=== PATIENT | female | born 1960 | race Caucasian/White ===

== ENCOUNTER → 2022-03-05 | Outpatient (REF) | payer MEDICARE ==
[2022-03-05 17:14] LABS: BASO # 0.1 10^3/uL (0.0-0.2); BASO % 0.8 % (0.0-1.0); EOS # 0.2 10^3/uL (0.0-0.5); EOS % 2.8 % (0.0-3.0); HEMATOCRIT 33.1 % (36.0-47.0); HEMOGLOBIN 9.5 g/dl (12.0-15.5); LYMPH # 1.7 10^3/uL (1.5-5.0); MEAN CORPUSCULAR HEMOGLOBIN 24.1 pg (27.0-33.0); MEAN CORPUSCULAR HGB CONC 28.7 g/dl (32.0-36.5); MONO # 0.7 10^3/uL (0.0-0.8); MONO % 10.2 % (2.0-8.0); NEUTROPHILS # 4.4 10^3/uL (1.5-8.5); NEUTROPHILS % 61.9 % (36.0-66.0); PLATELET COUNT, AUTOMATED 423 10^3/uL (150-450); RED BLOOD COUNT 3.94 10^6/uL (4.00-5.40); WHITE BLOOD COUNT 7.2 10^3/uL (4.0-10.0)
[2022-03-05 17:25] LABS: ALBUMIN 3.6 GM/DL (3.2-5.2); ALT/SGPT 20 U/L (12-78); BILIRUBIN,TOTAL 0.2 MG/DL (0.2-1.0); BLOOD UREA NITROGEN 24 MG/DL (7-18); CALCIUM LEVEL 9.3 MG/DL (8.8-10.2); CARBON DIOXIDE LEVEL 26 MEQ/L (21-32); CHLORIDE LEVEL 107 MEQ/L (98-107); CHOLESTEROL LEVEL 144 MG/DL (<200); CHOLESTEROL RISK RATIO 2.938 (<5); CREATININE FOR GFR 0.63 MG/DL (0.55-1.30); FREE T4 0.98 NG/DL (0.76-1.46); GLOMERULAR FILTRATION RATE > 60.0 (>45); GLUCOSE, FASTING 104 MG/DL (70-100); HDL CHOLESTEROL 49 MG/DL (>40); LDL CHOLESTEROL 73 MG/DL (<100); NON-HDL-C 95 MG/DL; POTASSIUM SERUM 3.5 MEQ/L (3.5-5.1); SODIUM LEVEL 138 MEQ/L (136-145); TOTAL PROTEIN 7.4 GM/DL (6.4-8.2); TRIGLYCERIDES LEVEL 109 MG/DL (<150)
[2022-03-05 17:41] LABS: HEMOGLOBIN A1c 5.1 %
== END ==
LOC: M LAB REF 16:37
PROVIDERS: ATTEND Nurse Practitioner Family
DX: Z13.228 Encounter for screening for other metabolic disorders (principal)

== ENCOUNTER → 2022-11-12 | Outpatient (REF) | payer MEDICARE ==
[2022-11-12 12:46] LABS: BASO % 0.4 % (0.0-1.0); EOS # 0.3 10^3/uL (0.0-0.5); EOS % 3.6 % (0.0-3.0); HEMATOCRIT 38.4 % (36.0-47.0); HEMOGLOBIN 11.7 g/dl (12.0-15.5); LYMPH # 2.2 10^3/uL (1.5-5.0); LYMPH % 23.5 % (24.0-44.0); MEAN CORPUSCULAR HEMOGLOBIN 26.3 pg (27.0-33.0); MEAN CORPUSCULAR HGB CONC 30.5 g/dl (32.0-36.5); MEAN CORPUSCULAR VOLUME 86.3 fl (80.0-96.0); MONO # 0.8 10^3/uL (0.0-0.8); MONO % 8.5 % (2.0-8.0); NEUTROPHILS # 6.1 10^3/uL (1.5-8.5); NEUTROPHILS % 63.8 % (36.0-66.0); PLATELET COUNT, AUTOMATED 331 10^3/uL (150-450); RED BLOOD COUNT 4.45 10^6/uL (4.00-5.40); WHITE BLOOD COUNT 9.5 10^3/uL (4.0-10.0)
== END ==
LOC: M LAB REF 11:47
PROVIDERS: ATTEND Nurse Practitioner Family
DX: J02.9 Acute pharyngitis, unspecified (principal); D64.9 Anemia, unspecified

== ENCOUNTER 2022-12-12 21:43 | Emergency (ER) | payer MEDICARE ==
[~2022-12-12] VITALS: Ht 160 cm; Wt 73.7 kg
[2022-12-12 21:45] VITALS: BP 167/89; TEMP 97.2
[2022-12-13] MEDS ORDERED: PROPARACAINE 0.5% OPHTH SOL 15ML OS ONE (01:20)
[2022-12-13] MEDS ORDERED: FLUORESCEIN OPHTH 1MG STRIP OS ONE (01:20)
[2022-12-13] MEDS ORDERED: CIPROFLOXACIN 0.3% OPHTH SOLN 2.5ML OS ONE (01:50)
[2022-12-13] MEDS ORDERED: NORCO, ANEXSIA 5/325MG TABLET (HYDROcodone/ACETAMINOPHEN) PO ONE (01:50)
[2022-12-13 01:59] VITALS: O2SAT 97
== END 2022-12-13 02:34 | disposition home or self-care (01) ==
LOC: M ED 21:43
DX: S00.83XA Contusion of other part of head, initial encounter (principal); W19.XXXA Unspecified fall, initial encounter; H10.9 Unspecified conjunctivitis; I10 Essential (primary) hypertension; F17.200 Nicotine dependence, unspecified, uncomplicated

== ENCOUNTER → 2023-06-29 | Outpatient (REF) | payer MEDICARE ==
[2023-06-29 12:40] LABS: BASO # 0.1 10^3/uL (0.0-0.2); BASO % 0.8 % (0.0-1.0); EOS # 0.3 10^3/uL (0.0-0.5); EOS % 3.8 % (0.0-3.0); HEMATOCRIT 39.2 % (36.0-47.0); HEMOGLOBIN 12.1 g/dl (12.0-15.5); LYMPH # 1.8 10^3/uL (1.5-5.0); LYMPH % 22.5 % (24.0-44.0); MEAN CORPUSCULAR HEMOGLOBIN 26.7 pg (27.0-33.0); MEAN CORPUSCULAR HGB CONC 30.9 g/dl (32.0-36.5); MEAN CORPUSCULAR VOLUME 86.3 fl (80.0-96.0); MONO # 0.5 10^3/uL (0.0-0.8); MONO % 6.7 % (2.0-8.0); NEUTROPHILS # 5.3 10^3/uL (1.5-8.5); NEUTROPHILS % 66.1 % (36.0-66.0); PLATELET COUNT, AUTOMATED 409 10^3/uL (150-450); RED BLOOD COUNT 4.54 10^6/uL (4.00-5.40); WHITE BLOOD COUNT 7.9 10^3/uL (4.0-10.0)
[2023-06-29 13:04] LABS: BLOOD UREA NITROGEN 17 MG/DL (9-23); CALCIUM LEVEL 9.3 MG/DL (8.3-10.6); CARBON DIOXIDE LEVEL 27 MMOL/L (20-31); CHLORIDE LEVEL 107 MMOL/L (98-107); CREATININE FOR GFR 0.43 MG/DL (0.55-1.30); GLOMERULAR FILTRATION RATE > 60.0 (>45); GLUCOSE, FASTING 85 MG/DL (74-106); POTASSIUM SERUM 4.7 MMOL/L (3.5-5.1); SODIUM LEVEL 137 MMOL/L (136-145)
== END ==
LOC: M LAB REF 12:16
PROVIDERS: ATTEND Nurse Practitioner Family
DX: Z01.818 Encounter for other preprocedural examination (principal)

== ENCOUNTER → 2024-01-26 | Outpatient (REF) | payer MEDICARE ==
[2024-01-26 17:30] LABS: BASO # 0.1 10^3/uL (0.0-0.2); BASO % 0.6 % (0.0-1.0); EOS # 0.2 10^3/uL (0.0-0.5); EOS % 1.9 % (0.0-3.0); HEMATOCRIT 33.5 % (36.0-47.0); HEMOGLOBIN 9.8 g/dl (12.0-15.5); LYMPH # 2.3 10^3/uL (1.5-5.0); LYMPH % 24.6 % (24.0-44.0); MEAN CORPUSCULAR HGB CONC 29.3 g/dl (32.0-36.5); MEAN CORPUSCULAR VOLUME 78.6 fl (80.0-96.0); MONO # 0.7 10^3/uL (0.0-0.8); MONO % 6.9 % (2.0-8.0); NEUTROPHILS # 6.3 10^3/uL (1.5-8.5); NEUTROPHILS % 65.7 % (36.0-66.0); PLATELET COUNT, AUTOMATED 364 10^3/uL (150-450); RED BLOOD COUNT 4.26 10^6/uL (4.00-5.40); WHITE BLOOD COUNT 9.5 10^3/uL (4.0-10.0)
[2024-01-26 17:52] LABS: ALBUMIN 3.9 G/DL (3.2-5.2); ALKALINE PHOSPHATASE 126 U/L (46-116); ALT/SGPT 12 U/L (7.0-40); AST/SGOT 11 U/L (<34); BILIRUBIN,TOTAL 0.2 MG/DL (0.3-1.2); BLOOD UREA NITROGEN 15 MG/DL (9-23); CALCIUM LEVEL 9.5 MG/DL (8.3-10.6); CARBON DIOXIDE LEVEL 25 MMOL/L (20-31); CHLORIDE LEVEL 108 MMOL/L (98-107); CHOLESTEROL LEVEL 235 MG/DL (<200); GLOMERULAR FILTRATION RATE > 60.0 (>45); GLUCOSE, FASTING 85 MG/DL (74-106); HDL CHOLESTEROL 53.3 MG/DL (>40); LDL CHOLESTEROL 137.1 MG/DL (<100); MAGNESIUM LEVEL 2.2 MG/DL (1.8-2.4); NON-HDL-C 181.7 MG/DL; POTASSIUM SERUM 4.4 MMOL/L (3.5-5.1); SODIUM LEVEL 139 MMOL/L (136-145); TOTAL PROTEIN 7.4 G/DL (5.7-8.2); TRIGLYCERIDES LEVEL 223 MG/DL (<150)
[2024-01-26 17:55] LABS: TOTAL 25(OH) VITAMIN D 27.9 NG/ML (20.0-100.0)
[2024-01-26 17:56] LABS: THYROID STIMULATING HORMONE 1.058 uIU/ML (0.55-4.78)
[2024-01-26 18:04] LABS: HEMOGLOBIN A1c 5.1 % (4.0-6.0)
== END ==
LOC: M LAB REF 16:49
PROVIDERS: ATTEND Nurse Practitioner Family
DX: E66.3 Overweight (principal); E55.9 Vitamin D deficiency, unspecified; E07.9 Disorder of thyroid, unspecified

== ENCOUNTER 2024-05-11 22:07 | Inpatient (IN) | payer MEDICARE, OTHER ==
[~2024-05-11] VITALS: Ht 165.1 cm; Wt 89.9 kg
[2024-05-11 22:31] LABS: VENOUS BASE EXCESS -1.7 (-2.0-2.0); VENOUS HCO3 24.9 MMOL/L (23.0-27.0); VENOUS O2 SATURATION 76.9 % (60.0-80.0); VENOUS PARTIAL PRESSURE CO2 51.6 mmHg (38.0-50.0); VENOUS PARTIAL PRESSURE O2 45.4 mmHg (30.0-50.0); VENOUS PH 7.301 UNITS (7.330-7.430); VENOUS STANDARD HCO3 22.7 MMOL/L; VENOUS TOTAL CO2 26.5 MMOL/L (24.0-28.0)
[2024-05-11 22:36] LABS: BASO # 0.1 10^3/uL (0.0-0.2); BASO % 0.7 % (0.0-1.0); EOS # 0.1 10^3/uL (0.0-0.5); EOS % 1.4 % (0.0-3.0); HEMATOCRIT 27.1 % (36.0-47.0); HEMOGLOBIN 7.6 g/dl (12.0-15.5); LYMPH # 0.6 10^3/uL (1.5-5.0); LYMPH % 6.8 % (24.0-44.0); MEAN CORPUSCULAR HEMOGLOBIN 21.3 pg (27.0-33.0); MEAN CORPUSCULAR VOLUME 75.9 fl (80.0-96.0); MONO # 0.6 10^3/uL (0.0-0.8); MONO % 7.3 % (2.0-8.0); NEUTROPHILS # 7.4 10^3/uL (1.5-8.5); NEUTROPHILS % 83.5 % (36.0-66.0); PLATELET COUNT, AUTOMATED 314 10^3/uL (150-450); RED BLOOD COUNT 3.57 10^6/uL (4.00-5.40); WHITE BLOOD COUNT 8.8 10^3/uL (4.0-10.0)
[2024-05-11] MEDS: IPRATROPIUM 0.5MG/ALBUTEROL 2.5MG INH SOL UD 3ML (DUONEB) NEB ONE (22:49)
[2024-05-11 23:00] LABS: ALBUMIN 3.6 G/DL (3.2-5.2); ALKALINE PHOSPHATASE 140 U/L (35-104); ALT/SGPT 18 U/L (7.0-40); AST/SGOT 41 U/L (<34); BILIRUBIN,DIRECT < 0.1 MG/DL (<0.4); BILIRUBIN,TOTAL < 0.2 MG/DL (0.3-1.2); BLOOD UREA NITROGEN 13 MG/DL (9-23); CALCIUM LEVEL 8.7 MG/DL (8.3-10.6); CARBON DIOXIDE LEVEL 24 MMOL/L (20-31); CHLORIDE LEVEL 107 MMOL/L (98-107); CREATININE FOR GFR 0.67 MG/DL (0.55-1.30); GLOMERULAR FILTRATION RATE > 60.0 (>45); GLUCOSE, FASTING 109 MG/DL (74-106); POTASSIUM SERUM 4.3 MMOL/L (3.5-5.1); SODIUM LEVEL 139 MMOL/L (136-145)
[2024-05-11 23:02] LABS: THYROID STIMULATING HORMONE 2.918 uIU/ML (0.55-4.78); THYROXINE (T4) 7.1 UG/DL (4.5-10.9)
[2024-05-12] VITALS (7 sets, daily range): BP systolic 111–127; BP diastolic 59–84; TEMP 96.9–98.4; O2SAT 91–98
[2024-05-12 00:17] LABS: CK-MB VALUE MASS 1.9 NG/ML (<3.6)
[2024-05-12 00:19] LABS: MB/CK RELATIVE INDEX 1.21 (< OR =4)
[2024-05-12 00:34] LABS: BASO # 0.1 10^3/uL (0.0-0.2); BASO % 0.7 % (0.0-1.0); EOS # 0.1 10^3/uL (0.0-0.5); EOS % 1.1 % (0.0-3.0); HEMATOCRIT 25.8 % (36.0-47.0); HEMOGLOBIN 7.5 g/dl (12.0-15.5); LYMPH # 0.4 10^3/uL (1.5-5.0); LYMPH % 4.6 % (24.0-44.0); MEAN CORPUSCULAR HEMOGLOBIN 22.3 pg (27.0-33.0); MEAN CORPUSCULAR HGB CONC 29.1 g/dl (32.0-36.5); MEAN CORPUSCULAR VOLUME 76.6 fl (80.0-96.0); MONO # 0.5 10^3/uL (0.0-0.8); MONO % 5.1 % (2.0-8.0); NEUTROPHILS # 8.1 10^3/uL (1.5-8.5); NEUTROPHILS % 88.1 % (36.0-66.0); PLATELET COUNT, AUTOMATED 318 10^3/uL (150-450); RED BLOOD COUNT 3.37 10^6/uL (4.00-5.40); WHITE BLOOD COUNT 9.2 10^3/uL (4.0-10.0)
[2024-05-12 00:54] LABS: CK-MB VALUE MASS 1.5 NG/ML (<3.6)
[2024-05-12 01:03] LABS: CPK CREATINE PHOSPHOKINASE 172 U/L (34-145); MB/CK RELATIVE INDEX 0.87 (< OR =4)
[2024-05-12] MEDS: ACETAMINOPHEN *IV* 1,000 MG in IV 1 EA IV ONE (01:51)
[2024-05-12] MEDS ORDERED: MAALOX 30 ML SUSP *UDC PO PRN (02:40)
[2024-05-12] MEDS ORDERED: ALBUTEROL 90 MCG/ACT 8GM HFA INHALER INH PRN (02:40)
[2024-05-12] MEDS ORDERED: MOM 30ML SUSPENSION UDC PO PRN (02:40)
[2024-05-12] MEDS ORDERED: IBUP-1022 PO (03:12)
[2024-05-12] MEDS ORDERED: GABA-1172 PO (03:12)
[2024-05-12] MEDS ORDERED: ZOLO100T PO (03:12)
[2024-05-12] MEDS ORDERED: CLON1TAB8 PO (03:12)
[2024-05-12] MEDS ORDERED: LISI30TA4 PO (03:12)
[2024-05-12] MEDS ORDERED: TRAZ-252 PO (03:12)
[2024-05-12] MEDS ORDERED: ZIPR60CA21 PO (03:12)
[2024-05-12] MEDS ORDERED: HOME MED LIST COMPLETE! XX SCH (03:15)
[2024-05-12] MEDS: cefTRIAXone SOD 1 GM in DEXTROSE 5% (D5W) ADV/MINI-BAG 50 ML IV SCH (03:30)
[2024-05-12] MEDS: IPRATROPIUM 0.5MG/ALBUTEROL 2.5MG INH SOL UD 3ML (DUONEB) NEB SCH (03:30)
[2024-05-12] MEDS: KETOROLAC TROMETHAMINE 10 MG TAB PO ONE (03:31)
[2024-05-12] MEDS: AZITHROMYCIN INJ 500 MG, VIAL MATE ADAPTER 1 EACH in NS 250 ML IV SCH (04:05)
[2024-05-12] MEDS ORDERED: ACETAMINOPHEN 325 MG TAB PO PRN (06:00)
[2024-05-12] MEDS: IBUPROFEN 600MG TAB PO PRN (07:19)
[2024-05-12 07:23] LABS: HEMATOCRIT 23.7 % (36.0-47.0); MEAN CORPUSCULAR HGB CONC 27.8 g/dl (32.0-36.5); MEAN CORPUSCULAR VOLUME 75.5 fl (80.0-96.0); PLATELET COUNT, AUTOMATED 286 10^3/uL (150-450); RED BLOOD COUNT 3.14 10^6/uL (4.00-5.40); WHITE BLOOD COUNT 7.2 10^3/uL (4.0-10.0)
[2024-05-12 07:31] LABS: HEMOGLOBIN 6.6 g/dl (12.0-15.5)
[2024-05-12 07:51] LABS: ALBUMIN 3.2 G/DL (3.2-5.2); ALKALINE PHOSPHATASE 139 U/L (35-104); ALT/SGPT 15 U/L (7.0-40); AST/SGOT 14 U/L (<34); BILIRUBIN,TOTAL < 0.2 MG/DL (0.3-1.2); BLOOD UREA NITROGEN 14 MG/DL (9-23); CARBON DIOXIDE LEVEL 26 MMOL/L (20-31); CHLORIDE LEVEL 108 MMOL/L (98-107); CREATININE FOR GFR 0.57 MG/DL (0.55-1.30); GLOMERULAR FILTRATION RATE > 60.0 (>45); GLUCOSE, FASTING 164 MG/DL (74-106); MAGNESIUM LEVEL 2.1 MG/DL (1.8-2.4); POTASSIUM SERUM 3.8 MMOL/L (3.5-5.1); SODIUM LEVEL 143 MMOL/L (136-145); TOTAL PROTEIN 6.8 G/DL (5.7-8.2)
[2024-05-12 08:02] LABS: PROCALCITONIN 0.04 ng/ml
[2024-05-12 08:25] LABS: IRON (FE) 9 UG/DL (50-170); PERCENT SATURATION 2.4 % (13.2-45.0); TOTAL IRON BINDING CAPACITY 382 UG/DL (250-425)
[2024-05-12 08:27] LABS: FOLATE 8.85 NG/ML (>5.4)
[2024-05-12 08:28] LABS: VITAMIN B12 LEVEL 417 PG/ML (211-911)
[2024-05-12] MEDS: clonazePAM 1 MG TAB PO PRN (08:35)
[2024-05-12] MEDS: DOCUSATE SODIUM 100MG CAPSULE PO SCH (08:35)
[2024-05-12] MEDS: OSELTAMIVIR PHOSPHATE 75 MG CAP (TAMIFLU) PO SCH (08:36)
[2024-05-12] MEDS: GABAPENTIN 300 MG CAP PO SCH (08:37)
[2024-05-12] MEDS: SERTRALINE 100 MG TAB PO SCH (08:37)
[2024-05-12] MEDS: predniSONE 20 MG TAB PO SCH (08:38)
[2024-05-12] MEDS: NICOTINE 14 MG/24 HR TRANSDERMAL TD SCH (08:38)
[2024-05-12] MEDS: PANTOPRAZOLE 40MG VIAL IV SCH (08:38)
[2024-05-12] MEDS: ENOXAPARIN 40MG/0.4ML SYRINGE (J1650 PER 10MG) SC SCH (08:39)
[2024-05-12] MEDS ORDERED: ISOVUE-370 76% 100ML VIAL As Ordered ONE (11:00)
[2024-05-12] MEDS ORDERED: KETOROLAC 30 MG/ML 1ML VIAL IV PRN (11:05)
[2024-05-12 11:38] LABS: VENOUS BASE EXCESS -2.7 (-2.0-2.0); VENOUS HCO3 22.9 MMOL/L (23.0-27.0); VENOUS O2 SATURATION 81.5 % (60.0-80.0); VENOUS PARTIAL PRESSURE CO2 43.7 mmHg (38.0-50.0); VENOUS PARTIAL PRESSURE O2 46.6 mmHg (30.0-50.0); VENOUS PH 7.338 UNITS (7.330-7.430); VENOUS TOTAL CO2 24.3 MMOL/L (24.0-28.0)
[2024-05-12] MEDS: oxyCODONE 5MG TAB PO PRN (11:41)
[2024-05-12] MEDS: ACETAMINOPHEN 500 MG TAB PO SCH (12:32)
[2024-05-12] MEDS: KETOROLAC 30 MG/ML 1ML VIAL IV SCH (12:33)
[2024-05-12] MEDS: FERRIC CARBOXYMALTOSE INJ 750 MG, VIAL MATE ADAPTER 1 EACH in NS 100 ML IV ONE (12:35)
[2024-05-12 17:38] LABS: HEMATOCRIT 26.5 % (36.0-47.0); HEMOGLOBIN 7.7 g/dl (12.0-15.5); MEAN CORPUSCULAR HEMOGLOBIN 22.1 pg (27.0-33.0); MEAN CORPUSCULAR HGB CONC 29.1 g/dl (32.0-36.5); MEAN CORPUSCULAR VOLUME 76.1 fl (80.0-96.0); PLATELET COUNT, AUTOMATED 284 10^3/uL (150-450); RED BLOOD COUNT 3.48 10^6/uL (4.00-5.40); WHITE BLOOD COUNT 6.9 10^3/uL (4.0-10.0)
[2024-05-12] MEDS: ZIPRASIDONE 20MG CAPSULE (GEODON) PO SCH (20:50)
[2024-05-12] MEDS: traZODone 50 MG TAB PO SCH (20:51)
[2024-05-13 04:03] VITALS: BP 123/74; TEMP 97.7; O2SAT 95
[2024-05-13 07:08] LABS: VENOUS BASE EXCESS -3.6 (-2.0-2.0); VENOUS HCO3 22.7 MMOL/L (23.0-27.0); VENOUS O2 SATURATION 97.4 % (60.0-80.0); VENOUS PARTIAL PRESSURE CO2 46.8 mmHg (38.0-50.0); VENOUS PARTIAL PRESSURE O2 111.3 mmHg (30.0-50.0); VENOUS PH 7.304 UNITS (7.330-7.430); VENOUS STANDARD HCO3 21.5 MMOL/L; VENOUS TOTAL CO2 24.2 MMOL/L (24.0-28.0)
[2024-05-13 07:54] LABS: HEMATOCRIT 28.5 % (36.0-47.0); HEMOGLOBIN 8.1 g/dl (12.0-15.5); MEAN CORPUSCULAR HGB CONC 28.4 g/dl (32.0-36.5); MEAN CORPUSCULAR VOLUME 77.2 fl (80.0-96.0); PLATELET COUNT, AUTOMATED 317 10^3/uL (150-450); RED BLOOD COUNT 3.69 10^6/uL (4.00-5.40); WHITE BLOOD COUNT 7.5 10^3/uL (4.0-10.0)
[2024-05-13 08:20] LABS: BLOOD UREA NITROGEN 19 MG/DL (9-23); CALCIUM LEVEL 8.7 MG/DL (8.3-10.6); CARBON DIOXIDE LEVEL 27 MMOL/L (20-31); CHLORIDE LEVEL 107 MMOL/L (98-107); CREATININE FOR GFR 0.59 MG/DL (0.55-1.30); GLOMERULAR FILTRATION RATE > 60.0 (>45); GLUCOSE, FASTING 100 MG/DL (74-106); POTASSIUM SERUM 3.7 MMOL/L (3.5-5.1); SODIUM LEVEL 143 MMOL/L (136-145)
[2024-05-13 09:00] VITALS: BP 108/70
[2024-05-13] MEDS ORDERED: AZITHROMYCIN 250MG TABLET PO SCH (09:00)
[2024-05-13] MEDS ORDERED: OSEL75CA2 PO (10:17)
[2024-05-13] MEDS ORDERED: OXYC-517 PO (10:17)
[2024-05-13] MEDS ORDERED: ACET-683 PO (10:17)
[2024-05-13] MEDS ORDERED: FERR325T3 PO (10:19)
== END 2024-05-13 12:06 | disposition home or self-care (01) | DRG 193 ==
LOC: EDBD 22:07 → M ED 22:07 → M ED INP 05-12 02:38 → M MS5PR 05-12 15:26
PROVIDERS: ADMIT Student in an Organized Health Care Education/Training Program; ATTEND Student in an Organized Health Care Education/Training Program
PROC: 30233N1 Transfusion of Nonautologous Red Blood Cells into Peripheral Vein, Percutaneous Approach (ICD-10-PCS; principal; 2024-05-12)
DX: J10.00 Influenza due to other identified influenza virus with unspecified type of pneumonia (principal); J96.01 Acute respiratory failure with hypoxia; J96.02 Acute respiratory failure with hypercapnia; D50.0 Iron deficiency anemia secondary to blood loss (chronic); F43.10 Post-traumatic stress disorder, unspecified; F31.9 Bipolar disorder, unspecified; J44.9 Chronic obstructive pulmonary disease, unspecified; F32.A Depression, unspecified; I10 Essential (primary) hypertension; F41.9 Anxiety disorder, unspecified; F17.200 Nicotine dependence, unspecified, uncomplicated; G62.9 Polyneuropathy, unspecified; G47.00 Insomnia, unspecified; Z79.899 Other long term (current) drug therapy

== ENCOUNTER 2024-09-09 21:15 | Emergency (ER) | payer MEDICARE, OTHER ==
[~2024-09-09] VITALS: Ht 160 cm; Wt 90.9 kg
[~2024-09-09 21:15] MED LIST: ACET-683 PO; CLON1TAB8 PO; FERR325T3 PO; GABA-1172 PO; IBUP-1022 PO; LISI30TA4 PO; OSEL75CA2 PO; OXYC-517 PO; TRAZ-252 PO; ZIPR60CA21 PO; ZOLO100T PO
[2024-09-09 21:44] LABS: BASO % 0.4 % (0.0-1.0); EOS # 0.2 10^3/uL (0.0-0.5); EOS % 1.5 % (0.0-3.0); HEMATOCRIT 42.6 % (36.0-47.0); HEMOGLOBIN 14.1 g/dl (12.0-15.5); LYMPH # 3.5 10^3/uL (1.5-5.0); LYMPH % 31.6 % (24.0-44.0); MEAN CORPUSCULAR HEMOGLOBIN 31.3 pg (27.0-33.0); MEAN CORPUSCULAR HGB CONC 33.1 g/dl (32.0-36.5); MEAN CORPUSCULAR VOLUME 94.5 fl (80.0-96.0); MONO # 0.8 10^3/uL (0.0-0.8); MONO % 7.3 % (2.0-8.0); NEUTROPHILS # 6.6 10^3/uL (1.5-8.5); NEUTROPHILS % 58.9 % (36.0-66.0); PLATELET COUNT, AUTOMATED 290 10^3/uL (150-450); RED BLOOD COUNT 4.51 10^6/uL (4.00-5.40); WHITE BLOOD COUNT 11.2 10^3/uL (4.0-10.0)
[2024-09-09] MEDS: ONDANSETRON 4MG 2ML VIAL IV ONE (21:59)
[2024-09-09 22:06] LABS: CK-MB VALUE MASS 1.1 NG/ML (<3.6); LIPASE 31 U/L (12-53)
[2024-09-09 22:08] LABS: ALBUMIN 3.4 G/DL (3.2-5.2); ALKALINE PHOSPHATASE 140 U/L (35-104); ALT/SGPT 14 U/L (7.0-40); AST/SGOT 14 U/L (<34); BILIRUBIN,DIRECT 0.1 MG/DL (<0.4); BILIRUBIN,TOTAL 0.4 MG/DL (0.3-1.2); BLOOD UREA NITROGEN 25 MG/DL (9-23); CALCIUM LEVEL 8.9 MG/DL (8.3-10.6); CARBON DIOXIDE LEVEL 28 MMOL/L (20-31); CHLORIDE LEVEL 108 MMOL/L (98-107); CREATININE FOR GFR 0.54 MG/DL (0.55-1.30); GLOMERULAR FILTRATION RATE > 90.0 (>45); GLUCOSE, FASTING 101 MG/DL (74-106); SODIUM LEVEL 144 MMOL/L (136-145); TOTAL PROTEIN 6.6 G/DL (5.7-8.2)
[2024-09-09] MEDS ORDERED: ISOVUE-370 76% 100 ML VIAL As Ordered ONE (22:14)
[2024-09-09 22:16] LABS: CPK CREATINE PHOSPHOKINASE 87 U/L (34-145); MB/CK RELATIVE INDEX 1.26 (< OR =4)
[2024-09-09] MEDS: NS 500 ML IV ONE (22:33)
[2024-09-09] MEDS: KCL 10MEQ/100ML SWI (KRUN) 10 MEQ in IV 1 EA IV ONE (22:33)
[2024-09-09] MEDS: KETOROLAC 30 MG/ML 1 ML VIAL IV ONE (22:47)
[2024-09-09 23:15] VITALS: BP 182/93; TEMP 98.6; O2SAT 96
[2024-09-09] MEDS ORDERED: ONDA-282 PO (23:16)
[2024-09-09] MEDS ORDERED: KETO-204 PO (23:16)
[2024-09-09] MEDS ORDERED: NYST1POW3 TOP (23:16)
[2024-09-09] MEDS ORDERED: POTA10CA70 PO (23:16)
[2024-09-09] MEDS: POTASSIUM CHLORIDE 10MEQ SR TABLET PO ONE (23:19)
[2024-10-16] MEDS ORDERED: AMOX875T2 PO (15:56)
[2024-10-16] MEDS ORDERED: KETO-204 PO (15:56)
[2024-10-16] MEDS ORDERED: SUCR1TA PO (16:03)
[2024-10-16] MEDS ORDERED: OMEP40CA4 PO (16:03)
== END 2024-09-09 23:53 | disposition home or self-care (01) ==
LOC: M ED 21:15
DX: R10.9 Unspecified abdominal pain (principal); R11.2 Nausea with vomiting, unspecified; B37.2 Candidiasis of skin and nail; E87.6 Hypokalemia; J98.11 Atelectasis; K44.9 Diaphragmatic hernia without obstruction or gangrene; I10 Essential (primary) hypertension; F43.10 Post-traumatic stress disorder, unspecified; F32.9 Major depressive disorder, single episode, unspecified; F41.9 Anxiety disorder, unspecified; F17.200 Nicotine dependence, unspecified, uncomplicated; Z79.899 Other long term (current) drug therapy; Z79.83 Long term (current) use of bisphosphonates
CPT/HCPCS: 71045; 74177; 80048; 80076; 82550; 82553; 83690; 84484; 85025; 87486; 87581; 87633; 87798; 93005; 93041; 94760; 96365; 96375; 99285; J1885; J2405; Q9967

== ENCOUNTER → 2024-09-16 | Outpatient (REF) | payer MEDICARE ==
[~2024-09-16] MED LIST changes: +KETO-204 PO; +NYST1POW3 TOP; +ONDA-282 PO; +POTA10CA70 PO
[2024-09-16 18:37] LABS: ALBUMIN 3.9 G/DL (3.2-5.2); ALKALINE PHOSPHATASE 125 U/L (35-104); ALT/SGPT 17 U/L (7.0-40); AST/SGOT 14 U/L (<34); BILIRUBIN,TOTAL 0.3 MG/DL (0.3-1.2); BLOOD UREA NITROGEN 22 MG/DL (9-23); CALCIUM LEVEL 9.2 MG/DL (8.3-10.6); CARBON DIOXIDE LEVEL 27 MMOL/L (20-31); CHLORIDE LEVEL 107 MMOL/L (98-107); CREATININE FOR GFR 0.58 MG/DL (0.55-1.30); GLOMERULAR FILTRATION RATE > 90.0 (>45); GLUCOSE, FASTING 84 MG/DL (74-106); MAGNESIUM LEVEL 2.1 MG/DL (1.8-2.4); POTASSIUM SERUM 4.7 MMOL/L (3.5-5.1); SODIUM LEVEL 144 MMOL/L (136-145); TOTAL PROTEIN 7.2 G/DL (5.7-8.2)
== END ==
LOC: M LAB REF 17:30
PROVIDERS: ATTEND Nurse Practitioner Family
DX: E87.6 Hypokalemia (principal)

== ENCOUNTER 2024-11-05 08:37 | Inpatient (IN) | payer MEDICARE ==
[~2024-11-05] VITALS: Ht 160 cm; Wt 104.5 kg
[~2024-11-05 08:37] MED LIST changes: +AMOX875T2 PO; +OMEP40CA4 PO; +SUCR1TA PO
[2024-11-05 09:12] LABS: BASO # 0.1 10^3/uL (0.0-0.2); BASO % 0.4 % (0.0-1.0); EOS # 0.1 10^3/uL (0.0-0.5); EOS % 0.4 % (0.0-3.0); LYMPH # 1.5 10^3/uL (1.5-5.0); LYMPH % 10.5 % (24.0-44.0); MONO # 0.7 10^3/uL (0.0-0.8); MONO % 5.3 % (2.0-8.0); NEUTROPHILS # 11.5 10^3/uL (1.5-8.5); NEUTROPHILS % 83.1 % (36.0-66.0); PLATELET COUNT, AUTOMATED 282 10^3/uL (150-450)
[2024-11-05] MEDS: MORPHINE 4 MG/ML 1 ML VIAL IV PRN (09:35)
[2024-11-05 09:42] LABS: CK-MB VALUE MASS 3.0 NG/ML (<3.6)
[2024-11-05 09:45] LABS: ALT/SGPT 15 U/L (7.0-40); AST/SGOT 19 U/L (<34); CALCIUM LEVEL 9.5 MG/DL (8.3-10.6); CARBON DIOXIDE LEVEL 29 MMOL/L (20-31); CHLORIDE LEVEL 105 MMOL/L (98-107); CREATININE FOR GFR 0.47 MG/DL (0.55-1.30); GLOMERULAR FILTRATION RATE > 90.0 (>45); POTASSIUM SERUM 3.4 MMOL/L (3.5-5.1); SODIUM LEVEL 148 MMOL/L (136-145)
[2024-11-05 09:52] LABS: CPK CREATINE PHOSPHOKINASE 80 U/L (34-145); MB/CK RELATIVE INDEX 3.75 (< OR =4)
[2024-11-05 10:38] LABS: AMPHETAMINES LEVEL URINE NEGATIVE (NEGATIVE); BARBITURATES URINE NEGATIVE (NEGATIVE); CANNABINOIDS URINE NEGATIVE (NEGATIVE); METHADONE URINE NEGATIVE (NEGATIVE); PHENCYCLIDINE URINE NEGATIVE (NEGATIVE)
[2024-11-05] MEDS: METOPROLOL 5 MG/5 ML VIAL IV SCH (10:39)
[2024-11-05] MEDS: METOPROLOL TART 25 MG TABLET PO ONE (10:40)
[2024-11-05 10:43] LABS: BENZODIAZEPINES URINE POSITIVE (NEGATIVE); COCAINE METABOLITE URINE POSITIVE (NEGATIVE); OPIATES URINE POSITIVE (NEGATIVE)
[2024-11-05 10:53] LABS: CK-MB VALUE MASS 3.4 NG/ML (<3.6)
[2024-11-05 10:55] VITALS: BP 176/100
[2024-11-05 11:04] LABS: CPK CREATINE PHOSPHOKINASE 84.0 U/L (34-145); MB/CK RELATIVE INDEX 4.04 (< OR =4)
[2024-11-05] MEDS ORDERED: ISOVUE-370 76% 100 ML VIAL As Ordered ONE (11:45)
[2024-11-05] MEDS: PANTOPRAZOLE 40MG VIAL IV ONE (11:47)
[2024-11-05] MEDS: SUCRALFATE SUSP 1GM/10ML UD PO ONE (11:47)
[2024-11-05] MEDS ORDERED: FAMO1TAB11 PO (14:02)
[2024-11-05] MEDS ORDERED: KETO-204 PO (14:02)
[2024-11-05] MEDS ORDERED: ACET-897 PO (14:02)
[2024-11-05] MEDS ORDERED: PREG100C2 PO (14:02)
[2024-11-05] MEDS ORDERED: LORA-930 PO (14:02)
[2024-11-05] MEDS ORDERED: ONDA-83 PO (14:02)
[2024-11-05] MEDS ORDERED: FERR1TAB8 PO (14:02)
[2024-11-05] MEDS ORDERED: OMEP40CA5 PO (14:02)
[2024-11-05] MEDS ORDERED: HOME MED LIST COMPLETE! XX SCH (14:05)
[2024-11-05 15:17] LABS: MAGNESIUM LEVEL 2.0 MG/DL (1.8-2.4)
[2024-11-05 18:00] VITALS: BP 115/65; TEMP 98.1; O2SAT 91
[2024-11-05] MEDS: MORPHINE 2 MG/ML 1 ML VIAL IV PRN (18:37)
[2024-11-05 19:05] LABS: ESTIMATED AVERAGE GLUCOSE 91.0 MG/DL (60-110)
[2024-11-05 19:07] LABS: CHOLESTEROL LEVEL 146.0 MG/DL (<200); CHOLESTEROL RISK RATIO 3.26 (<5); LDL CHOLESTEROL 82.9 MG/DL (<100); NON-HDL-C 101.3 MG/DL; TRIGLYCERIDES LEVEL 92.0 MG/DL (<150)
[2024-11-05 20:00] VITALS: BP 129/88; TEMP 97.7; O2SAT 89
[2024-11-06] MEDS ORDERED: LACTATED RINGER'S 1000 ML As Ordered ONE (00:57)
[2024-11-06] MEDS: PANTOPRAZOLE 40MG VIAL IV SCH (01:03)
[2024-11-06] MEDS: POTASSIUM CHLORIDE INJ 20 MEQ in LR 1,000 ML IV SCH (01:04)
[2024-11-06 04:00] VITALS: BP 129/88; TEMP 97.7; O2SAT 89
[2024-11-06 05:47] LABS: PLATELET COUNT, AUTOMATED 247 10^3/uL (150-450)
[2024-11-06 06:16] LABS: ALT/SGPT 71 U/L (7.0-40); AST/SGOT 72 U/L (<34); CALCIUM LEVEL 9.2 MG/DL (8.3-10.6); CARBON DIOXIDE LEVEL 30 MMOL/L (20-31); CHLORIDE LEVEL 105 MMOL/L (98-107); CREATININE FOR GFR 0.53 MG/DL (0.55-1.30); GLOMERULAR FILTRATION RATE > 90.0 (>45); POTASSIUM SERUM 3.4 MMOL/L (3.5-5.1); SODIUM LEVEL 147 MMOL/L (136-145)
[2024-11-06] MEDS: ONDANSETRON 4MG 2ML VIAL IV PRN (06:28)
[2024-11-06] MEDS: NYSTATIN 100,000 UNITS/GM TOPICAL PWD 15 GM TOP SCH (08:21)
[2024-11-06 08:56] VITALS: BP 141/87; TEMP 97.9; O2SAT 93
[2024-11-06] MEDS: POTASSIUM CHLORIDE INJ 20 MEQ in D5W/LR 1,000 ML IV SCH (11:21)
[2024-11-06 12:29] VITALS: BP 138/83; TEMP 98.6; O2SAT 93
[2024-11-06] MEDS: HEPARIN SOD 5000 UNITS/ML 1 ML VIAL/SYRINGE SQ SCH (14:35)
[2024-11-06 19:19] LABS: CALCIUM LEVEL 8.7 MG/DL (8.3-10.6); CARBON DIOXIDE LEVEL 32 MMOL/L (20-31); CHLORIDE LEVEL 105 MMOL/L (98-107); CREATININE FOR GFR 0.50 MG/DL (0.55-1.30); GLOMERULAR FILTRATION RATE > 90.0 (>45); POTASSIUM SERUM 3.6 MMOL/L (3.5-5.1); SODIUM LEVEL 146 MMOL/L (136-145)
[2024-11-06 20:00] VITALS: BP 141/89; TEMP 98.1; O2SAT 93
[2024-11-06 21:00] VITALS: BP 141/89; TEMP 98.1; O2SAT 93
[2024-11-07 04:00] VITALS: BP 141/89; TEMP 98.1; O2SAT 93
[2024-11-07 06:33] LABS: BASO # 0.0 10^3/uL (0.0-0.2); BASO % 0.4 % (0.0-1.0); EOS # 0.1 10^3/uL (0.0-0.5); EOS % 1.5 % (0.0-3.0); LYMPH # 2.0 10^3/uL (1.5-5.0); LYMPH % 22.1 % (24.0-44.0); MONO # 0.9 10^3/uL (0.0-0.8); MONO % 9.5 % (2.0-8.0); NEUTROPHILS # 6.0 10^3/uL (1.5-8.5); NEUTROPHILS % 66.2 % (36.0-66.0); PLATELET COUNT, AUTOMATED 215 10^3/uL (150-450)
[2024-11-07 07:02] LABS: CALCIUM LEVEL 8.9 MG/DL (8.3-10.6); CARBON DIOXIDE LEVEL 30 MMOL/L (20-31); CHLORIDE LEVEL 104 MMOL/L (98-107); CREATININE FOR GFR 0.51 MG/DL (0.55-1.30); GLOMERULAR FILTRATION RATE > 90.0 (>45); POTASSIUM SERUM 3.8 MMOL/L (3.5-5.1); SODIUM LEVEL 146 MMOL/L (136-145)
[2024-11-07] MEDS: MORPHINE 2 MG/ML 1 ML VIAL IV PRN (08:28)
[2024-11-07] MEDS: HYDROMORPHONE HCL 0.5 MG/0.5 ML SYRINGE IV PRN ×2 (12:15→19:55)
[2024-11-07 12:20] VITALS: BP 156/90; TEMP 97.7; O2SAT 93
[2024-11-07] MEDS: POTASSIUM CHLORIDE INJ 20 MEQ in D5W/LR 1,000 ML IV SCH (14:14)
[2024-11-07 20:04] VITALS: BP 180/109; TEMP 97.9; O2SAT 95
[2024-11-07 20:10] VITALS: BP 176/104
[2024-11-07 23:19] VITALS: BP 175/102
[2024-11-08] VITALS (8 sets, daily range): BP systolic 132–173; BP diastolic 92–122; TEMP 97.5–98.1; O2SAT 90–95
[2024-11-08 06:09] LABS: BASO # 0.0 10^3/uL (0.0-0.2); BASO % 0.4 % (0.0-1.0); EOS # 0.2 10^3/uL (0.0-0.5); EOS % 2.1 % (0.0-3.0); LYMPH # 2.0 10^3/uL (1.5-5.0); LYMPH % 19.8 % (24.0-44.0); MONO # 0.9 10^3/uL (0.0-0.8); MONO % 8.9 % (2.0-8.0); NEUTROPHILS # 6.8 10^3/uL (1.5-8.5); NEUTROPHILS % 68.6 % (36.0-66.0); PLATELET COUNT, AUTOMATED 220 10^3/uL (150-450)
[2024-11-08 06:35] LABS: CALCIUM LEVEL 9.2 MG/DL (8.3-10.6); CARBON DIOXIDE LEVEL 29 MMOL/L (20-31); CHLORIDE LEVEL 102 MMOL/L (98-107); CREATININE FOR GFR 0.43 MG/DL (0.55-1.30); GLOMERULAR FILTRATION RATE > 90.0 (>45); POTASSIUM SERUM 3.7 MMOL/L (3.5-5.1); SODIUM LEVEL 143 MMOL/L (136-145)
[2024-11-08] MEDS ORDERED: E-Z-PAQUE 96% w/w SUSP 176 GM BTL As Ordered ONE (07:51)
[2024-11-08] MEDS ORDERED: hydrALAZINE 20 MG/ML 1 ML VIAL IV PRN (10:55)
[2024-11-08] MEDS ORDERED: HYDROMORPHONE HCL 0.5 MG/0.5 ML SYRINGE IV PRN (16:20)
[2024-11-08] MEDS: HYDROMORPHONE HCL 0.5 MG/0.5 ML SYRINGE IV PRN (17:28)
[2024-11-08] MEDS: **hydrALAZINE HCL** 25 MG TAB PO SCH (22:13)
== END 2024-11-09 08:05 | disposition left against medical advice (07) | DRG 391 ==
LOC: M ED 08:37 → EDBD 08:37 → M ED INP 15:22 → M MSPAV 16:58
PROVIDERS: ADMIT Internal Medicine; ATTEND Student in an Organized Health Care Education/Training Program
DX: K44.0 Diaphragmatic hernia with obstruction, without gangrene (principal); K56.2 Volvulus; I10 Essential (primary) hypertension; I16.0 Hypertensive urgency; J44.9 Chronic obstructive pulmonary disease, unspecified; F31.9 Bipolar disorder, unspecified; F43.10 Post-traumatic stress disorder, unspecified; F41.0 Panic disorder [episodic paroxysmal anxiety]; K21.9 Gastro-esophageal reflux disease without esophagitis; I48.0 Paroxysmal atrial fibrillation; F17.200 Nicotine dependence, unspecified, uncomplicated; F14.90 Cocaine use, unspecified, uncomplicated; Z79.899 Other long term (current) drug therapy; G89.29 Other chronic pain; Z91.199 Patient's noncompliance with other medical treatment and regimen due to unspecified reason

== ENCOUNTER 2024-11-24 11:08 | Emergency (ER) | payer MEDICARE ==
[~2024-11-24] VITALS: Ht 160 cm; Wt 86.1 kg
[~2024-11-24 11:08] MED LIST changes: +ACET-897 PO; +FAMO1TAB11 PO; +FERR1TAB8 PO; +LORA-930 PO; +OMEP40CA5 PO; +ONDA-83 PO; +PREG100C2 PO
[2024-11-24 12:10] LABS: BASO # 0.0 10^3/uL (0.0-0.2); BASO % 0.3 % (0.0-1.0); EOS # 0.1 10^3/uL (0.0-0.5); EOS % 0.9 % (0.0-3.0); LYMPH # 1.4 10^3/uL (1.5-5.0); LYMPH % 10.4 % (24.0-44.0); MONO # 0.7 10^3/uL (0.0-0.8); MONO % 5.2 % (2.0-8.0); NEUTROPHILS # 11.3 10^3/uL (1.5-8.5); NEUTROPHILS % 82.8 % (36.0-66.0); PLATELET COUNT, AUTOMATED 386 10^3/uL (150-450)
[2024-11-24 12:15] LABS: ALT/SGPT 14 U/L (7.0-40); AST/SGOT 20 U/L (<34); CALCIUM LEVEL 8.7 MG/DL (8.3-10.6); CARBON DIOXIDE LEVEL 28 MMOL/L (20-31); CHLORIDE LEVEL 102 MMOL/L (98-107); CREATININE FOR GFR 0.55 MG/DL (0.55-1.30); GLOMERULAR FILTRATION RATE > 90.0 (>45); POTASSIUM SERUM 3.5 MMOL/L (3.5-5.1); SODIUM LEVEL 144 MMOL/L (136-145)
[2024-11-24] MEDS ORDERED: ISOVUE-370 76% 100 ML VIAL As Ordered ONE (14:19)
[2024-11-24] MEDS: PANTOPRAZOLE 40MG VIAL IV ONE (14:23)
[2024-11-24] MEDS: HYDROMORPHONE HCL 0.5 MG/0.5 ML SYRINGE IV ONE (14:23)
[2024-11-24] MEDS: HYDROMORPHONE HCL 0.5 MG/0.5 ML SYRINGE IV PRN (16:21)
[2024-11-24] MEDS ORDERED: HOME MED LIST COMPLETE! XX SCH (16:35)
[2024-11-24 18:06] LABS: KETONE, URINE AUTO RFX TRACE mg/dL (NEGATIVE); LEUKOCYTE ESTERASE UR AUTO RFX NEGATIVE (NEGATIVE); MUCUS, URINE RFX SMALL (NEGATIVE); NITRITE, URINE AUTO RFX NEGATIVE (NEGATIVE); RBC, URINE AUTO RFX 1 /HPF (0-3); SQUAM EPITHELIAL CELL UR AURFX 9 /HPF (0-6); WBC, URINE AUTO RFX 1 /HPF (0-3)
[2024-11-24 18:15] LABS: AMPHETAMINES LEVEL URINE NEGATIVE (NEGATIVE); BARBITURATES URINE NEGATIVE (NEGATIVE); COCAINE METABOLITE URINE NEGATIVE (NEGATIVE); METHADONE URINE NEGATIVE (NEGATIVE)
[2024-11-24 18:16] LABS: BENZODIAZEPINES URINE POSITIVE (NEGATIVE); CANNABINOIDS URINE NEGATIVE (NEGATIVE); OPIATES URINE POSITIVE (NEGATIVE); PHENCYCLIDINE URINE NEGATIVE (NEGATIVE)
[2024-11-24 18:30] VITALS: BP 155/90; TEMP 96.4; O2SAT 94
[2024-11-24] MEDS ORDERED: HYDR2TAB2 PO (18:32)
[2024-11-24] MEDS ORDERED: NARC1SPR NARES (19:08)
== END 2024-11-24 18:46 | disposition home or self-care (01) ==
LOC: EDBD 11:08 → M ED 11:08
DX: K44.9 Diaphragmatic hernia without obstruction or gangrene (principal); I10 Essential (primary) hypertension; Z90.5 Acquired absence of kidney; F41.9 Anxiety disorder, unspecified; Z79.899 Other long term (current) drug therapy; Z79.891 Long term (current) use of opiate analgesic; Z79.1 Long term (current) use of non-steroidal anti-inflammatories (NSAID)
CPT/HCPCS: 71045; 74177; 80048; 80076; 80307; 81001; 83690; 85025; 93005; 93041; 96374; 96375; 99285; J1171; J2470; Q9967

== ENCOUNTER 2025-03-03 09:19 | Emergency (ER) | payer MEDICARE, MEDICAID ==
[~2025-03-03] VITALS: Ht 160 cm; Wt 75.0 kg
[~2025-03-03 09:19] MED LIST changes: +HYDR2TAB2 PO; -IBUP-1022 PO; +IBUP600T42 PO; +NARC1SPR NARES
[2025-03-03 10:08] LABS: BASO # 0.0 10^3/uL (0.0-0.2); BASO % 0.4 % (0.0-1.0); EOS # 0.1 10^3/uL (0.0-0.5); EOS % 0.7 % (0.0-3.0); LYMPH # 1.5 10^3/uL (1.5-5.0); LYMPH % 15.1 % (24.0-44.0); MONO # 0.7 10^3/uL (0.0-0.8); MONO % 6.5 % (2.0-8.0); NEUTROPHILS # 7.9 10^3/uL (1.5-8.5); NEUTROPHILS % 77.1 % (36.0-66.0); PLATELET COUNT, AUTOMATED 328 10^3/uL (150-450)
[2025-03-03 10:28] LABS: ALT/SGPT 11 U/L (7.0-40); AST/SGOT 14 U/L (<34); CALCIUM LEVEL 9.0 MG/DL (8.3-10.6); CARBON DIOXIDE LEVEL 24 MMOL/L (20-31); CHLORIDE LEVEL 104 MMOL/L (98-107); CK-MB VALUE MASS < 1.0 NG/ML (<3.6); CPK CREATINE PHOSPHOKINASE 28 U/L (34-145); CREATININE FOR GFR 0.48 MG/DL (0.55-1.30); GLOMERULAR FILTRATION RATE > 90.0 (>45); POTASSIUM SERUM 3.7 MMOL/L (3.5-5.1); SODIUM LEVEL 137 MMOL/L (136-145)
[2025-03-03] MEDS: ONDANSETRON 4MG/2ML VIAL IV ONE (12:05)
[2025-03-03] MEDS: MORPHINE 2 MG/ML 1 ML VIAL IV ONE ×2 (12:05→13:32)
[2025-03-03] MEDS: NS (Normal Saline) 0.9% 1,000 ML IV ONE (12:06)
[2025-03-03] MEDS ORDERED: ISOVUE-370 76% 100 ML VIAL As Ordered ONE (12:26)
[2025-03-03 12:51] LABS: CK-MB VALUE MASS < 1.0 NG/ML (<3.6)
[2025-03-03 12:58] LABS: CPK CREATINE PHOSPHOKINASE 39 U/L (34-145)
[2025-03-03] MEDS: KETOROLAC 30 MG/ML 1 ML VIAL IV ONE (13:32)
[2025-03-03] MEDS: HYDROMORPHONE HCL 0.5 MG/0.5 ML SYRINGE IV ONE (16:17)
[2025-03-03] MEDS ORDERED: NS 500 ML IV ONE (19:35)
[2025-03-03] MEDS: HYDROMORPHONE HCL 0.5 MG/0.5 ML SYRINGE IV PRN (20:12)
[2025-03-03] MEDS ORDERED: LIDOCAINE 2% 5 ML JELLY UROJET As Ordered ONE (21:23)
[2025-03-03] MEDS: LIDOCAINE 2% 5 ML JELLY UROJET TOP ONE (21:25)
[2025-03-04 00:01] VITALS: BP 143/86; TEMP 97.9; O2SAT 91
== END 2025-03-04 00:24 | disposition short-term general hospital (02) ==
LOC: M ED 09:19 → EDBD 09:19 → M ED 03-04 00:24
DX: K56.2 Volvulus (principal); K44.9 Diaphragmatic hernia without obstruction or gangrene; K57.30 Diverticulosis of large intestine without perforation or abscess without bleeding; F17.200 Nicotine dependence, unspecified, uncomplicated; Z79.1 Long term (current) use of non-steroidal anti-inflammatories (NSAID); Z79.899 Other long term (current) drug therapy
CPT/HCPCS: 71045; 71275; 74177; 80048; 80076; 82550; 82553; 83605; 83690; 84484; 85025; 93005; 96374; 96375; 96376; 99285; J1171; J1885; J2405; Q9967

== ENCOUNTER 2025-04-06 09:36 | Emergency (ER) | payer MEDICARE, MEDICAID ==
[2025-04-06] MEDS: NS 500 ML IV ONE (10:27)
[2025-04-06 10:34] LABS: BASO # 0.0 10^3/uL (0.0-0.2); BASO % 0.5 % (0.0-1.0); EOS # 0.2 10^3/uL (0.0-0.5); EOS % 3.0 % (0.0-3.0); LYMPH # 1.9 10^3/uL (1.5-5.0); LYMPH % 23.8 % (24.0-44.0); MONO # 0.6 10^3/uL (0.0-0.8); MONO % 7.8 % (2.0-8.0); NEUTROPHILS # 5.2 10^3/uL (1.5-8.5); NEUTROPHILS % 64.7 % (36.0-66.0); PLATELET COUNT, AUTOMATED 325 10^3/uL (150-450)
[2025-04-06 10:51] LABS: CK-MB VALUE MASS 3.0 NG/ML (<3.6)
[2025-04-06 10:54] LABS: ALT/SGPT 34 U/L (7.0-40); AST/SGOT 29 U/L (<34); CALCIUM LEVEL 9.0 MG/DL (8.3-10.6); CARBON DIOXIDE LEVEL 21 MMOL/L (20-31); CHLORIDE LEVEL 106 MMOL/L (98-107); CREATININE FOR GFR 0.49 MG/DL (0.55-1.30); GLOMERULAR FILTRATION RATE > 90.0 (>45); POTASSIUM SERUM 4.3 MMOL/L (3.5-5.1); SODIUM LEVEL 139 MMOL/L (136-145)
[2025-04-06 10:57] LABS: CPK CREATINE PHOSPHOKINASE 51 U/L (34-145); MB/CK RELATIVE INDEX 5.88 (< OR =4)
[2025-04-06] MEDS: MAGIC MOUTHWASH 5 ML ORAL SYRINGE SSP ONE (11:01)
[2025-04-06] MEDS: ACETAMINOPHEN 500 MG TAB PO ONE (12:07)
[2025-04-06 12:27] LABS: CK-MB VALUE MASS 3.0 NG/ML (<3.6)
[2025-04-06 12:30] LABS: CPK CREATINE PHOSPHOKINASE 48.0 U/L (34-145); MB/CK RELATIVE INDEX 6.25 (< OR =4)
[2025-04-06 12:51] VITALS: BP 138/83; TEMP 97.2; O2SAT 85
[2025-04-06] MEDS ORDERED: MAGICMW SSP (13:30)
== END 2025-04-06 14:16 | disposition home or self-care (01) ==
LOC: EDBD 09:36 → M ED 09:36
DX: K12.0 Recurrent oral aphthae (principal); I10 Essential (primary) hypertension; J44.9 Chronic obstructive pulmonary disease, unspecified; F43.10 Post-traumatic stress disorder, unspecified; F31.9 Bipolar disorder, unspecified; F17.200 Nicotine dependence, unspecified, uncomplicated; Z79.1 Long term (current) use of non-steroidal anti-inflammatories (NSAID); Z79.899 Other long term (current) drug therapy